=== PATIENT | male | born 1945 | race Caucasian/White ===

== ENCOUNTER → 2021-03-24 | Outpatient (CLI) | payer OTHER ==
[~2021-03-24] MED LIST: ALLERCLEAR10 MG; AMLODIPINE-BEN1 EAC4; BACTRIM DS TAB1 EACH PO; CIALIS20 MG; FENOFIBRATE160 MG; GLUCOPHAGE XR500 MG; MOBIC15 MG; OMEPRAZOLE20 M2; PRAVACHOL40 MG; VIIBRYD40 MG; WELCHOL 625 MG625 MG
== END ==
LOC: M.CT 10:28
PROVIDERS: ATTEND Internal Medicine Cardiovascular Disease
DX: Z13.6 Encounter for screening for cardiovascular disorders (principal); I25.10 Atherosclerotic heart disease of native coronary artery without angina pectoris